=== PATIENT | female | born 1980 | race Caucasian/White ===

== ENCOUNTER → 2020-10-01 | Outpatient (CLI) | payer BC ==
[~2020-10-01] MED LIST: ECOTRIN81 MG PO; HYDROXYZINE HCL10 MG PO; METOPROLOL TART25 MG PO; PEPCID40 MG PO; PROTONIX40 MG PO; SINGULAIR10 MG PO
[2020-10-01 09:04] LABS: HEMOGLOBIN 14.1 gm/dl (12.3-15.3); RED BLOOD COUNT 4.68 M/UL (4.00-5.10); WHITE BLOOD COUNT 8.9 K/UL (4.5-11.0)
[2020-10-01 09:26] LABS: BUN/CREATININE RATIO 23 (0-10)
== END ==
LOC: LAB 07:51
PROVIDERS: Family Medicine
DX: F41.1 Generalized anxiety disorder (principal); I49.3 Ventricular premature depolarization; E78.1 Pure hyperglyceridemia
CPT/HCPCS: 36415; 80053; 80061; 84443; 85027

== ENCOUNTER → 2020-10-24 | Outpatient (CLI) | payer BC ==
[2020-10-24 15:57] LABS: BUN/CREATININE RATIO 24 (0-10)
== END ==
LOC: US 08:47
PROVIDERS: Family Medicine
DX: R10.12 Left upper quadrant pain (principal); E78.2 Mixed hyperlipidemia; K76.0 Fatty (change of) liver, not elsewhere classified
CPT/HCPCS: 36415; 76700; 80053; 80061

== ENCOUNTER → 2020-12-10 | Day surgery (SDC) | payer BC | END | disposition home or self-care (01) | LOC: OR 07:01 | DX: K31.9 Disease of stomach and duodenum, unspecified (principal); K44.9 Diaphragmatic hernia without obstruction or gangrene; K21.9 Gastro-esophageal reflux disease without esophagitis; D17.1 Benign lipomatous neoplasm of skin and subcutaneous tissue of trunk; K76.0 Fatty (change of) liver, not elsewhere classified; F41.9 Anxiety disorder, unspecified; E28.2 Polycystic ovarian syndrome; E66.8 Other obesity; Z68.35 Body mass index [BMI] 35.0-35.9, adult; Z87.891 Personal history of nicotine dependence; Z88.2 Allergy status to sulfonamides; Z88.5 Allergy status to narcotic agent; Z91.048 Other nonmedicinal substance allergy status; Z79.82 Long term (current) use of aspirin; Z79.899 Other long term (current) drug therapy | CPT/HCPCS: J2405; J2704; J7040 ==

== ENCOUNTER → 2021-03-21 | Outpatient (CLI) | payer BC ==
[2021-03-21 13:46] LABS: HEMOGLOBIN 13.3 gm/dl (12.3-15.3); RED BLOOD COUNT 4.44 M/UL (4.00-5.10); WHITE BLOOD COUNT 7.4 K/UL (4.5-11.0)
[2021-03-21 13:54] LABS: BUN/CREATININE RATIO 15 (0-10)
[2021-03-22 08:13] LABS: HBSAG SCREEN Negative (Negative); HEP A AB, IGM Negative (Negative); HEP B CORE AB, IGM Negative (Negative); HEP C VIRUS AB <0.1 (0.0-0.9)
[2021-03-22 10:11] LABS: ALPHA-1-ANTITRYPSIN, SERUM 132 mg/dL (100-188)
[2021-03-22 16:11] LABS: MITOCHONDRIAL (M2) ANTIBODY <20.0 Units (0.0-20.0)
== END ==
LOC: LAB 12:35
PROVIDERS: Family Medicine
DX: R79.89 Other specified abnormal findings of blood chemistry (principal); E78.2 Mixed hyperlipidemia; K21.9 Gastro-esophageal reflux disease without esophagitis; Z79.899 Other long term (current) drug therapy
CPT/HCPCS: 36415; 80053; 80061; 80074; 82103; 82607; 83540; 83550; 83735; 85027; 86038

== ENCOUNTER → 2021-11-19 | Outpatient (CLI) | payer BC ==
[2021-11-19 09:15] LABS: HEMOGLOBIN 12.9 gm/dl (12.3-15.3); RED BLOOD COUNT 4.44 M/UL (4.00-5.10); WHITE BLOOD COUNT 8.1 K/UL (4.5-11.0)
[2021-11-19 09:44] LABS: BUN/CREATININE RATIO 23 (0-10)
== END ==
LOC: LAB 08:12
PROVIDERS: Family Medicine
DX: E78.2 Mixed hyperlipidemia (principal)
CPT/HCPCS: 36415; 80053; 80061; 83735; 85027